=== PATIENT | female | born 1930 | race Caucasian/White ===

== ENCOUNTER 2016-12-18 23:22 | Inpatient (IN) | payer OTHER ==
[~2016-12-18] VITALS: Ht 154.9 cm; Wt 66.0 kg
[~2016-12-18 23:22] MED LIST: ARIMIDEX1 MG PO; ASPIRIN E.C.81 M1 PO; ASPIRIN81 M2 PO; BISAC-EVAC10 MG PR; CEFTIN500 MG PO; FLEET ENEMA EX230 ML PR; LISINOPRIL5 MG PO; MILK OF MAGN PO; MILK OF MAGNESI10 ML PO; MULTI VITAMIN1 EACH PO; MULTIVITAMIN1 EAC2; MULTIVITAMIN1 EAC2 PO; NORCO 5/3251 TABLET PO; TYLENOL EXTRA500 MG PO; TYLENOL REGULA325 MG PO
[2016-12-18 23:49] LABS: BICARBONATE 21.2 mEq/L (22-26); CARBOXY HGB 1.7 % (0-5); DEVICE VENT; FI02 100 %; METHEMOGLOBIN 0.9 % (0-1.5); MODE SPON; PCO2 53 mm Hg (35-45); PEEP 5 CM/H20; PO2 165 mm Hg (80-100); PRES. SUPPORT 10 CM/H2O; SITE RB; TOTAL RESP RATE 50 resp/min; pH 7.21 (7.35-7.45)
[2016-12-18 23:50] LABS: EOSINOPHIL (%) 0.7 % (0-5); EOSINOPHIL COUNT 0.1 K/uL (0-0.3); HEMATOCRIT 41.3 % (36.0-46.0); IMMATURE GRANULOCYTE (%) 0.6 % (0.0-0.7); LYMPHOCYTE COUNT 0.5 K/uL (1.0-2.8); MCH 29.9 PG (29.0-34.0); MCHC 30.5 G/DL (30.0-36.0); MCV 98.1 FL (83-99); MEAN PLAT.VOLUME 9.8 uM^3 (9.5-12.4); MONOCYTE (%) 7.6 % (3-12); MONOCYTE COUNT 0.5 K/uL (0-0.8); NEUTROPHIL (%) 84.2 % (45-76); PLATELET COUNT 250 K/uL (156-360); RBC DIS.WIDTH-CV 15.3 % (11.8-14.6); RBC DIS.WIDTH-SD 53.5 % (39-53); RED BLOOD COUNT 4.21 M/uL (3.80-5.20); WHITE BLOOD COUNT 7.1 K/uL (4.1-10.2)
[2016-12-19 00:01] LABS: CHLORIDE 107 mEq/L (99-109); SODIUM 141 mEq/L (136-147)
[2016-12-19 00:03] LABS: GLUCOSE 108 mg/dL (70-99)
[2016-12-19 00:04] LABS: ANION GAP 15 MEQ/L (2-14)
[2016-12-19 00:05] LABS: TOTAL BILIRUBIN 0.5 mg/dL (0.0-1.0)
[2016-12-19 00:06] LABS: ALKALINE PHOSPHATASE 187 IU/L (3-129)
[2016-12-19 00:07] LABS: GFR ESTIMATE (CALCULATED) 10 mL/min/
[2016-12-19 00:08] LABS: UREA NITROGEN (BUN) 86 mg/dL (9-23)
[2016-12-19 00:13] LABS: TROP-I INTERPRETATION NEGATIVE
[2016-12-19 00:26] LABS: POTASSIUM 6.8 mEq/L (3.7-5.4)
[2016-12-19 00:38] LABS: INFLUENZA A VIRAL ANTIGEN NEGATIVE; INFLUENZA B VIRAL ANTIGEN NEGATIVE
[2016-12-19 04:30] VITALS: BP 109/46
[2016-12-19 08:03] VITALS: BP 109/46
== END 2016-12-19 16:17 | DRG 189 ==
LOC: EME → EDBD 23:22 → EDOF 12-19 02:21 → 4SOUTH 12-19 04:11
PROVIDERS: Emergency Medicine
PROC: 5A09357 Assistance with Respiratory Ventilation, Less than 24 Consecutive Hours, Continuous Positive Airway Pressure (ICD-10-PCS; principal; 2016-12-19)
DX: J96.01 Acute respiratory failure with hypoxia (principal); Z51.5 Encounter for palliative care; N17.9 Acute kidney failure, unspecified; Z74.01 Bed confinement status; I89.0 Lymphedema, not elsewhere classified; Z85.3 Personal history of malignant neoplasm of breast; W18.30XA Fall on same level, unspecified, initial encounter; Y92.129 Unspecified place in nursing home as the place of occurrence of the external cause; S06.9X9A Unspecified intracranial injury with loss of consciousness of unspecified duration, initial encounter; C79.51 Secondary malignant neoplasm of bone; C78.7 Secondary malignant neoplasm of liver and intrahepatic bile duct; Z92.21 Personal history of antineoplastic chemotherapy; Z92.3 Personal history of irradiation; E87.4 Mixed disorder of acid-base balance; J91.0 Malignant pleural effusion; Z86.73 Personal history of transient ischemic attack (TIA), and cerebral infarction without residual deficits; Z66 Do not resuscitate; E87.5 Hyperkalemia
CPT/HCPCS: 36600; 70450; 71010; 71250; 74176; 80053; 81003; 82803; 83880; 84484; 85025; 87040; 87502; 93005; 94002; 94799; 99281; 99285; J0610; J2270; J7030; J7050; J7644